=== PATIENT | female | born 1995 | race Caucasian/White ===

== ENCOUNTER → 2020-03-19 | Outpatient (CLI) | payer BC | END | disposition home or self-care (01) | LOC: STAR 08:53 | PROVIDERS: ATTEND Obstetrics & Gynecology | DX: Z01.812 Encounter for preprocedural laboratory examination (principal); Z20.828 Contact with and (suspected) exposure to other viral communicable diseases | CPT/HCPCS: 36415; 87635 ==

== ENCOUNTER 2020-03-27 06:00 | Inpatient (IN) | payer BC ==
[~2020-03-27] VITALS: Ht 157.5 cm; Wt 106.8 kg
[2020-03-27 06:15] VITALS: BP 116/71
[2020-03-27] MEDS ORDERED: PREN1TAB62 PO (06:17)
[2020-03-27] MEDS ORDERED: D5%-LACTATED RINGERS 1,000 ML IV SCH (06:30)
[2020-03-27] MEDS ORDERED: ONDANSETRON 2MG/ML, 2ML IVPush PRN (06:30)
[2020-03-27] MEDS ORDERED: FENTANYL PF 100 MCG/2ML IV PRN (06:30)
[2020-03-27] MEDS ORDERED: TERBUTALINE 1 MG/ML, 1ML SQ PRN (06:30)
[2020-03-27] MEDS ORDERED: TERBUTALINE 1 MG/ML, 1ML IVPush PRN (06:30)
[2020-03-27] MEDS ORDERED: CALCIUM CARBONATE 500 MG TAB.CHEW PO PRN (06:30)
[2020-03-27] MEDS ORDERED: OXYTOCIN 30U/ 0.9% NaCL 500ML 500 ML IV ONE (06:30)
[2020-03-27] MEDS ORDERED: FENTANYL PF 100 MCG/2ML IVPush PRN (06:30)
[2020-03-27 06:32] LABS: BASOPHILS % (AUTO) 0 % (0-1); EOSINOPHILS % (AUTO) 1 % (1-7); LYMPHOCYTES % (AUTO) 29 % (22-44); MEAN CORPUSCULAR HEMOGLOBIN 28.5 pg (27.0-34.8); MEAN CORPUSCULAR HGB CONC 33.5 g/dL (32.4-35.8); MEAN PLATELET VOLUME 7.9 fL (7.4-10.4); MONOCYTES % (AUTO) 10 % (2-9); NEUTROPHILS % (AUTO) 60 % (42-75); PLATELET COUNT 243 x10^3/uL (130-400); RED BLOOD COUNT 4.48 x10^6/uL (3.82-5.3); RED CELL DISTRIBUTION WIDTH 13.4 % (9.6-15.2)
[2020-03-27] MEDS: LACTATED RINGERS 1,000 ML IV SCH ×2 (06:34→14:20)
[2020-03-27 06:41] LABS: MD NO
[2020-03-27] MEDS ORDERED: OXYTOCIN 30U/ 0.9% NaCL 500ML 500 ML ONE (07:05)
[2020-03-27] MEDS ORDERED: MISOPROSTOL 200 MCG TABLET ONE (07:05)
[2020-03-27] MEDS ORDERED: LIDOCAINE 1%, 20ML ONE (07:05)
[2020-03-27] MEDS ORDERED: NEWBORN KIT ONE (07:05)
[2020-03-27] MEDS ORDERED: OXYTOCIN 30U/ 0.9% NaCL 500ML 500 ML IV PRN (07:30)
[2020-03-27] MEDS ORDERED: NALOXONE 0.4 MG/ML, 1ML IVPush PRN (09:00)
[2020-03-27] MEDS ORDERED: FENTANYL/BUPIV./NS/PF 250 ML EPIDCONT SCH (09:00)
[2020-03-27] MEDS: LACTATED RINGERS 1,000 ML IVBOLUS PRN ×2 (21:20→21:45)
[2020-03-27] MEDS ORDERED: BUPIVACAINE 0.25% ONE (22:00)
[2020-03-27] MEDS ORDERED: FENTANYL/BUPIV./NS/PF 250 ML EPIDCONT ONE (22:00)
[2020-03-27] MEDS ORDERED: EPHEDRINE 50 MG/ML, 1ML ONE (22:54)
[2020-03-27] MEDS: EPHEDRINE 50 MG/ML, 1ML IVPush PRN ×2 (22:57→23:07)
[2020-03-28] MEDS: LACTATED RINGERS 1,000 ML IV SCH ×2 (01:16→02:57)
[2020-03-28] MEDS ORDERED: DIPHENHYDRAMINE 50 MG/ML, 1ML ONE (07:19)
[2020-03-28] MEDS ORDERED: DIPHENHYDRAMINE 50 MG/ML, 1ML IVPush ONE (07:30)
[2020-03-28] MEDS ORDERED: IBUPROFEN 600 MG TABLET ONE (10:55)
[2020-03-28] MEDS ORDERED: OXYcodone IR 5MG TABLET PO PRN (11:00)
[2020-03-28] MEDS ORDERED: ONDANSETRON 2MG/ML, 2ML IV PRN (11:00)
[2020-03-28] MEDS ORDERED: MISOPROSTOL 200 MCG TABLET PR PRN (11:00)
[2020-03-28] MEDS ORDERED: SIMETHICONE 80 MG CHEW TAB PO PRN (11:00)
[2020-03-28] MEDS ORDERED: DOCUSATE 100 MG CAPSULE PO PRN (11:00)
[2020-03-28] MEDS ORDERED: OXYcodone/APAP 5/325MG TABLET PO PRN (11:00)
[2020-03-28] MEDS ORDERED: ACETAMINOPHEN 325 MG TABLET PO PRN (11:00)
[2020-03-28] MEDS ORDERED: OXYTOCIN 30U/ 0.9% NaCL 500ML 500 ML ONE (11:10)
[2020-03-28] MEDS: OXYTOCIN 30U/ 0.9% NaCL 500ML 500 ML IV SCH ×2 (11:12→19:34)
[2020-03-28] MEDS: IBUPROFEN 600 MG TABLET PO PRN ×2 (11:15→23:17)
[2020-03-28 12:45] VITALS: BP 103/66
[2020-03-28 16:50] VITALS: BP 121/68
[2020-03-28 18:15] LABS: BASOPHILS % (AUTO) 0 % (0-1); EOSINOPHILS % (AUTO) 0 % (1-7); LYMPHOCYTES % (AUTO) 9 % (22-44); MEAN CORPUSCULAR HEMOGLOBIN 29.1 pg (27.0-34.8); MEAN CORPUSCULAR HGB CONC 33.9 g/dL (32.4-35.8); MEAN PLATELET VOLUME 8.2 fL (7.4-10.4); MONOCYTES % (AUTO) 5 % (2-9); NEUTROPHILS % (AUTO) 86 % (42-75); PLATELET COUNT 220 x10^3/uL (130-400); RED BLOOD COUNT 4.22 x10^6/uL (3.82-5.3); RED CELL DISTRIBUTION WIDTH 13.9 % (9.6-15.2)
[2020-03-28 18:17] LABS: MD NO
[2020-03-28 19:27] VITALS: BP 114/74
[2020-03-28] MEDS ORDERED: RHOGAM FROM BLOOD BANK 1 NOTE EA IM/IV ONE (20:30)
[2020-03-28 23:19] VITALS: BP 115/78
[2020-03-29 04:24] VITALS: BP 112/79
[2020-03-29] MEDS: OXYTOCIN 30U/ 0.9% NaCL 500ML 500 ML IV SCH (07:00)
[2020-03-29 08:00] VITALS: BP 143/85
[2020-03-29] MEDS: IBUPROFEN 600 MG TABLET PO PRN (08:15)
[2020-03-29] MEDS ORDERED: PRENATAL VIT/IRON/FA 1 EACH TABLET PO SCH (09:00)
[2020-03-29] MEDS ORDERED: IBUP-1222 PO (11:57)
== END 2020-03-29 12:25 | disposition home or self-care (01) | DRG 807 ==
LOC: LDIP 06:00 → 2NW 03-28 12:26
PROVIDERS: ADMIT Student in an Organized Health Care Education/Training Program; ATTEND Student in an Organized Health Care Education/Training Program
PROC: 10E0XZZ Delivery of Products of Conception, External Approach (ICD-10-PCS; principal; 2020-03-28)
PROC: 3E0R3BZ Introduction of Anesthetic Agent into Spinal Canal, Percutaneous Approach (ICD-10-PCS; 2020-03-28)
PROC: 00HU33Z Insertion of Infusion Device into Spinal Canal, Percutaneous Approach (ICD-10-PCS; 2020-03-28)
PROC: 10H07YZ Insertion of Other Device into Products of Conception, Via Natural or Artificial Opening (ICD-10-PCS; 2020-03-28)
PROC: 10907ZC Drainage of Amniotic Fluid, Therapeutic from Products of Conception, Via Natural or Artificial Opening (ICD-10-PCS; 2020-03-28)
DX: O69.89X0 Labor and delivery complicated by other cord complications, not applicable or unspecified (principal); Z37.0 Single live birth; O62.2 Other uterine inertia; Z3A.39 39 weeks gestation of pregnancy
CPT/HCPCS: 36415; J7121; 85025; 85461; 86592; 86850; 86900; G0378; J2790; J1200; J2590; J7120